=== PATIENT | female | born 1980 | race Caucasian/White ===

== ENCOUNTER 2019-01-11 11:10 | Emergency (ER) | payer OTHER ==
--- NOTE | 2019-01-11 12:23 | ER Document Report ---
HPI - HPI Time Seen by Provider: 01/11/19 11:44 Pain Level: 4 Notes: Patient is a 38-year-old female presenting with chronic pain to her neck and shoulder. She states that she has a history of degenerative disc disease, states that she usually sees a chiropractor which helps with her pain. Patient reports the pain has been getting worse over the last 3 to 5 days. She states that an MRI was recommended by her chiropractor. She states that she tried to make an appointment with her primary care provider to get this done however they were unable to see her. Patient presents to the emergency department in hopes of getting an MRI done today. - REPRODUCTIVE Reproductive: DENIES: : Past Medical History - General Information source: Patient - Social History Smoking Status: Never Smoker Frequency of alcohol use: None Drug Abuse: None Family History: Reviewed & Not Pertinent - Medical History Medical History: Negative Surgical Hx: Negative - Immunizations Hx Diphtheria, Pertussis, Tetanus Vaccination: Yes Vertical Provider Document - CONSTITUTIONAL Notes: PHYSICAL EXAMINATION: GENERAL: Well-appearing, well-nourished and in no acute distress. HEAD: Atraumatic, normocephalic. EYES: Pupils equal round extraocular movements intact, conjunctiva are normal. ENT: Nares patent NECK: Normal range of motion LUNGS: No respiratory distress Musculoskeletal: Normal range of motion, tenderness to palpation to cervical spine, no step-off or deformity noted. Full range of motion in all directions. NEUROLOGICAL: Normal speech, normal gait. PSYCH: Normal mood, normal affect. SKIN: Warm, Dry, normal turgor, no rashes or lesions noted. - INFECTION CONTROL TRAVEL OUTSIDE OF THE [place] IN LAST 30 DAYS: No Course - Re-evaluation Re-evalutation: Explained to patient that we do not do nonemergent MRIs here in the emergency department. I would be happy to start her on some medications for her symptoms. - Vital Signs Vital signs: Temp Pulse Resp BP Pulse Ox 97.9 F 81 16 116/73 100 01/11/19 11:14 01/11/19 11:14 01/11/19 11:14 01/11/19 11:14 01/11/19 11:14 Discharge - Discharge Clinical Impression: Cervical muscle strain Qualifiers: Encounter type: initial encounter Qualified Code(s): S16.1XXA - Strain of muscle, fascia and tendon at neck level, initial encounter Condition: Stable Disposition: HOME, SELF-CARE Additional Instructions: Cervical Strain You have a neck strain. This is an injury to the muscles and ligaments in the neck. Also, no injury to the spinal cord or nerve roots was detected. The usual initial treatment is rest and cold packs. A neck collar may be placed to keep the muscles of the neck at rest. Antiinflammatory and muscle relaxing medication are often used to reduce the spasm and irritation. You should call the doctor, or go to the hospital, if you develop numbness or weakness in any extremity, problems with your bladder or bowel, or pain radiating down the arms. Please take ibuprofen 600 mg every 6 hours. Use the muscle relaxer as prescribed. Please keep the follow-up appointment you have with your primary care provider for next week. Let them know you have been through chiropractic sessions, physical therapy and have allowed plenty of time to elapse. Hopefully they will order the MRI that has been requested by your chiropractor. Return to the emergency department with any new or worsening symptoms. Prescriptions: Methocarbamol [Robaxin 500 mg Tablet] 500 mg PO QID #30 tablet Forms: Return to Work
[2019-01-11 12:36] VITALS: BP 115/79
== END 2019-01-11 12:52 | disposition home or self-care (01) ==
LOC: ER 11:10
DX: S16.1XXA Strain of muscle, fascia and tendon at neck level, initial encounter (principal); M54.2 Cervicalgia; G89.29 Other chronic pain; X58.XXXA Exposure to other specified factors, initial encounter
CPT/HCPCS: 99283